=== PATIENT | male | born 1970 | race Two or more races ===

== ENCOUNTER → 2021-04-07 00:33 | Outpatient (CLI) | payer OTHER, SELFPAY ==
[2021-04-07 20:43] LABS: SARS-CoV-2 RNA PCR Positive
== END ==
PROVIDERS: PCP Emergency Medicine; Visit Provider Emergency Medicine
DX: U07.1 COVID-19 (principal); J02.9 Acute pharyngitis, unspecified
CPT/HCPCS: C9803; U0003; U0005